=== PATIENT | female | born 1940 | race Two or more races ===

== ENCOUNTER 2017-12-18 22:32 | Inpatient (IN) | payer OTHER ==
[~2017-12-18] VITALS: Ht 162.6 cm; Wt 72.6 kg
[~2017-12-18 22:32] MED LIST: CRESTOR5 MG PO; METFORMIN HCL500 MG PO; NEXIUM20 MG/PACK PO; VALIUM5 MG/M1 IJ; [UNRECOGNIZED DRUG - OTHER]
[2017-12-29] MEDS ORDERED: ACTONEL5 MG (16:28)
[2018-01-04] MEDS ORDERED: CRESTOR5 MG PO (10:46)
[2018-01-04] MEDS ORDERED: Coreg 25MG TABLET PO (10:46)
== END 2018-01-04 12:02 | disposition home health service (06) | DRG 377 ==
LOC: ER 22:32 → ICU-2 12-19 09:34 → SEC-K 12-28 08:18 → MEDI 12-28 09:19 → SURH 12-28 09:19
PROC: 30233N1 Transfusion of Nonautologous Red Blood Cells into Peripheral Vein, Percutaneous Approach (ICD-10-PCS; principal; 2017-12-19)
PROC: 3E0F7GC Introduction of Other Therapeutic Substance into Respiratory Tract, Via Natural or Artificial Opening (ICD-10-PCS; 2017-12-20)
PROC: B246ZZZ Ultrasonography of Right and Left Heart (ICD-10-PCS; 2017-12-20)
PROC: 02HV33Z Insertion of Infusion Device into Superior Vena Cava, Percutaneous Approach (ICD-10-PCS; 2017-12-25)
PROC: B246ZZZ Ultrasonography of Right and Left Heart (ICD-10-PCS; 2017-12-25)
PROC: 4A12X4Z Monitoring of Cardiac Electrical Activity, External Approach (ICD-10-PCS; 2017-12-28)
DX: K92.1 Melena (principal); I21.A1 Myocardial infarction type 2; I50.23 Acute on chronic systolic (congestive) heart failure; R57.1 Hypovolemic shock; D62 Acute posthemorrhagic anemia; F05 Delirium due to known physiological condition; J91.8 Pleural effusion in other conditions classified elsewhere; R39.2 Extrarenal uremia; K92.0 Hematemesis; I35.0 Nonrheumatic aortic (valve) stenosis; E11.9 Type 2 diabetes mellitus without complications; E78.4 Other hyperlipidemia; I25.10 Atherosclerotic heart disease of native coronary artery without angina pectoris; Z85.118 Personal history of other malignant neoplasm of bronchus and lung; E78.5 Hyperlipidemia, unspecified; I11.0 Hypertensive heart disease with heart failure; Z78.1 Physical restraint status

== ENCOUNTER 2018-02-18 07:32 | Emergency (ER) | payer OTHER ==
[~2018-02-18] VITALS: Ht 157.5 cm; Wt 54.9 kg
[~2018-02-18 07:32] MED LIST changes: +ACTONEL5 MG; +Coreg 25MG TABLET PO
[2018-02-18] MEDS ORDERED: SINGULAIR10 MG PO (07:57)
[2018-02-18] MEDS ORDERED: PROTONIX40 M1 PO (07:57)
[2018-02-18] MEDS ORDERED: TRAMADOL HCL50 MG PO (12:11)
== END 2018-02-18 13:07 | disposition home or self-care (01) ==
LOC: ER 07:32
DX: K57.90 Diverticulosis of intestine, part unspecified, without perforation or abscess without bleeding (principal)

== ENCOUNTER 2018-02-25 09:00 | Outpatient (CLI) | payer OTHER ==
[~2018-02-25 09:00] MED LIST changes: +PROTONIX40 M1 PO; +SINGULAIR10 MG PO; +TRAMADOL HCL50 MG PO
== END 2018-02-25 09:30 | disposition home or self-care (01) ==
LOC: RX STUDY 09:00
DX: I73.89 Other specified peripheral vascular diseases (principal)

== ENCOUNTER 2018-06-05 07:55 | Outpatient (CLI) | payer OTHER | END 2018-06-05 08:32 | disposition home or self-care (01) | LOC: MAMO-SONO 07:55 | DX: Z12.31 Encounter for screening mammogram for malignant neoplasm of breast (principal); Z87.898 Personal history of other specified conditions; N60.11 Diffuse cystic mastopathy of right breast; N60.12 Diffuse cystic mastopathy of left breast ==

== ENCOUNTER → 2018-06-17 07:02 | Outpatient (CLI) | payer OTHER | END | disposition home or self-care (01) | LOC: LAB 07:02 | DX: I10 Essential (primary) hypertension (principal); Z86.59 Personal history of other mental and behavioral disorders; D50.8 Other iron deficiency anemias; C7A.090 Malignant carcinoid tumor of the bronchus and lung ==

== ENCOUNTER 2018-07-31 07:17 | Outpatient (CLI) | payer OTHER | END 2018-07-31 08:32 | disposition home or self-care (01) | LOC: LAB 07:17 | DX: D50.8 Other iron deficiency anemias (principal); C7A.090 Malignant carcinoid tumor of the bronchus and lung; I10 Essential (primary) hypertension; Z86.59 Personal history of other mental and behavioral disorders ==

== ENCOUNTER → 2018-11-18 08:09 | Outpatient (CLI) | payer OTHER | END | disposition home or self-care (01) | LOC: LAB 08:09 | DX: C7A.090 Malignant carcinoid tumor of the bronchus and lung (principal); Z86.59 Personal history of other mental and behavioral disorders; I10 Essential (primary) hypertension; D50.8 Other iron deficiency anemias ==

== ENCOUNTER 2019-01-06 08:39 | Outpatient (CLI) | payer OTHER | END 2019-01-06 08:48 | disposition home or self-care (01) | LOC: LAB 08:39 | DX: D50.8 Other iron deficiency anemias (principal); I10 Essential (primary) hypertension; Z86.59 Personal history of other mental and behavioral disorders; C7A.090 Malignant carcinoid tumor of the bronchus and lung ==

== ENCOUNTER 2019-04-09 08:24 | Outpatient (CLI) | payer OTHER | END 2019-04-09 08:33 | disposition home or self-care (01) | LOC: LAB 08:24 | DX: C7A.090 Malignant carcinoid tumor of the bronchus and lung (principal); Z86.59 Personal history of other mental and behavioral disorders; I10 Essential (primary) hypertension; D50.8 Other iron deficiency anemias ==

== ENCOUNTER 2019-04-12 08:59 | Outpatient (CLI) | payer OTHER | END 2019-04-12 09:05 | disposition home or self-care (01) | LOC: LAB 08:59 | DX: C7A.090 Malignant carcinoid tumor of the bronchus and lung (principal); I10 Essential (primary) hypertension; Z86.59 Personal history of other mental and behavioral disorders; D50.8 Other iron deficiency anemias ==

== ENCOUNTER 2019-08-16 09:37 | Outpatient (CLI) | payer OTHER | END 2019-08-16 15:45 | disposition home or self-care (01) | LOC: LAB 09:37 | DX: C7A.090 Malignant carcinoid tumor of the bronchus and lung (principal); D50.0 Iron deficiency anemia secondary to blood loss (chronic); D50.8 Other iron deficiency anemias ==

== ENCOUNTER → 2019-08-18 08:58 | Outpatient (CLI) | payer OTHER | END | disposition home or self-care (01) | LOC: LAB 08:58 | PROVIDERS: ATTEND Internal Medicine Hematology & Oncology | DX: C7A.090 Malignant carcinoid tumor of the bronchus and lung (principal); D50.0 Iron deficiency anemia secondary to blood loss (chronic); D50.8 Other iron deficiency anemias ==

== ENCOUNTER → 2019-09-16 | Outpatient (CLI) | payer OTHER | END | disposition home or self-care (01) | LOC: TOM 09:39 | PROVIDERS: ATTEND Internal Medicine Hematology & Oncology | DX: K57.90 Diverticulosis of intestine, part unspecified, without perforation or abscess without bleeding (principal); D3A.098 Benign carcinoid tumors of other sites; K44.9 Diaphragmatic hernia without obstruction or gangrene | CPT/HCPCS: 71260; 74177; Q9965 ==

== ENCOUNTER 2019-10-07 09:19 | Outpatient (CLI) | payer OTHER | END 2019-10-07 09:26 | disposition home or self-care (01) | LOC: LAB 09:19 | PROVIDERS: ATTEND Internal Medicine Hematology & Oncology | DX: D50.0 Iron deficiency anemia secondary to blood loss (chronic) (principal); I10 Essential (primary) hypertension; C7A.090 Malignant carcinoid tumor of the bronchus and lung ==

== ENCOUNTER 2019-10-08 10:13 | Outpatient (CLI) | payer OTHER | END 2019-10-08 12:40 | disposition home or self-care (01) | LOC: LAB 10:13 | PROVIDERS: ATTEND Internal Medicine Hematology & Oncology | DX: D50.0 Iron deficiency anemia secondary to blood loss (chronic) (principal); I10 Essential (primary) hypertension; C7A.090 Malignant carcinoid tumor of the bronchus and lung ==

== ENCOUNTER → 2019-10-28 | Outpatient (CLI) | payer OTHER | END | disposition home or self-care (01) | LOC: RAD 09:58 | PROVIDERS: ATTEND Specialist | DX: M25.332 Other instability, left wrist (principal); M25.331 Other instability, right wrist ==

== ENCOUNTER 2019-12-20 12:09 | Emergency (ER) | payer OTHER ==
[~2019-12-20] VITALS: Ht 157.5 cm; Wt 56.2 kg
== END 2019-12-20 18:49 | disposition home or self-care (01) ==
LOC: ER 12:09
DX: S01.121A Laceration with foreign body of right eyelid and periocular area, initial encounter (principal); S01.421A Laceration with foreign body of right cheek and temporomandibular area, initial encounter; S80.212A Abrasion, left knee, initial encounter; S40.211A Abrasion of right shoulder, initial encounter; W18.09XA Striking against other object with subsequent fall, initial encounter; Z03.818 Encounter for observation for suspected exposure to other biological agents ruled out; Y93.89 Activity, other specified; Y92.22 Religious institution as the place of occurrence of the external cause; Y99.8 Other external cause status

== ENCOUNTER 2020-01-06 09:37 | Outpatient (CLI) | payer OTHER | END 2020-01-06 09:44 | disposition home or self-care (01) | LOC: TOM 09:37 | PROVIDERS: ATTEND Internal Medicine Hematology & Oncology | DX: J98.11 Atelectasis (principal); K44.9 Diaphragmatic hernia without obstruction or gangrene | CPT/HCPCS: 71260; Q9965 ==

== ENCOUNTER 2020-02-22 06:44 | Outpatient (CLI) | payer OTHER | END 2020-02-22 06:48 | disposition home or self-care (01) | LOC: LAB 06:44 | DX: D50.8 Other iron deficiency anemias (principal) ==

== ENCOUNTER 2020-02-24 09:05 | Outpatient (CLI) | payer OTHER | END 2020-02-24 15:00 | disposition home or self-care (01) | LOC: LAB 09:05 | DX: D50.8 Other iron deficiency anemias (principal) ==

== ENCOUNTER 2020-03-01 09:10 | Outpatient (CLI) | payer OTHER | END 2020-03-01 10:04 | disposition home or self-care (01) | LOC: LAB 09:10 | DX: R80.8 Other proteinuria (principal); E11.22 Type 2 diabetes mellitus with diabetic chronic kidney disease; E21.2 Other hyperparathyroidism; N18.30 Chronic kidney disease, stage 3 unspecified ==

== ENCOUNTER 2020-03-07 09:04 | Outpatient (CLI) | payer OTHER | END 2020-03-07 09:11 | disposition home or self-care (01) | LOC: LAB 09:04 | DX: E11.65 Type 2 diabetes mellitus with hyperglycemia (principal); E78.2 Mixed hyperlipidemia; I11.9 Hypertensive heart disease without heart failure; Z68.23 Body mass index [BMI] 23.0-23.9, adult ==

== ENCOUNTER 2020-05-03 14:15 | Emergency (ER) | payer OTHER ==
[~2020-05-03] VITALS: Ht 160 cm; Wt 0.5 kg
[2020-05-03] MEDS ORDERED: AFINITOR10 MG (14:33)
[2020-05-03] MEDS ORDERED: PROTONIX40 MG (14:33)
[2020-05-03] MEDS ORDERED: ATACAND16 MG (14:34)
[2020-05-03] MEDS ORDERED: HYDROCHLOROTH12.5 MG (14:35)
[2020-05-03] MEDS ORDERED: ARICEPT5 MG (14:35)
[2020-05-03] MEDS ORDERED: AMOX-CLAV 875-1 EACH PO (18:57)
[2020-05-03] MEDS ORDERED: INTESTINEX680 M1 PO (18:57)
== END 2020-05-03 19:04 | disposition home or self-care (01) ==
LOC: ER 14:15
DX: L03.115 Cellulitis of right lower limb (principal); R60.0 Localized edema

== ENCOUNTER 2020-07-02 22:39 | Emergency (ER) | payer OTHER ==
[~2020-07-02] VITALS: Ht 160 cm; Wt 52.2 kg
[~2020-07-02 22:39] MED LIST changes: +AFINITOR10 MG; +AMOX-CLAV 875-1 EACH PO; +ARICEPT5 MG; +ATACAND16 MG; +HYDROCHLOROTH12.5 MG; +INTESTINEX680 M1 PO; +PROTONIX40 MG
[2020-07-02] MEDS ORDERED: JANUVIA50 MG (22:42)
== END 2020-07-03 00:11 | disposition home or self-care (01) ==
LOC: ER 22:39
DX: S00.83XA Contusion of other part of head, initial encounter (principal); S40.012A Contusion of left shoulder, initial encounter; W18.09XA Striking against other object with subsequent fall, initial encounter; Y93.89 Activity, other specified; Y92.098 Other place in other non-institutional residence as the place of occurrence of the external cause; Y99.8 Other external cause status

== ENCOUNTER 2020-07-03 11:43 | Outpatient (CLI) | payer OTHER ==
[~2020-07-03 11:43] MED LIST changes: +JANUVIA50 MG
== END 2020-07-03 11:48 | disposition home or self-care (01) ==
LOC: RAD 11:43
PROVIDERS: ATTEND Orthopaedic Surgery
DX: M79.641 Pain in right hand (principal); M79.632 Pain in left forearm; M79.622 Pain in left upper arm